=== PATIENT | male | born 1940 | race Caucasian/White ===

== ENCOUNTER 2025-08-08 09:49 | Day surgery (SDC) | payer MEDICARE ==
[~2025-08-08] VITALS: Ht 188 cm; Wt 103.1 kg
[2025-08-08] VITALS (14 sets, daily range): BP systolic 95–134; BP diastolic 40–82; PULSE 54–89; RESP 6–24; TEMP 97; O2SAT 94–100
[2025-08-08] MEDS: DOCUMENT DATE & TIME OF BETA-BLOCKER PO ONE (05:30)
[2025-08-08] MEDS: ceFAZolin/D5W- 1GM premix 50 ML IV ONE (05:30)
[~2025-08-08 09:49] MED LIST: APIX5TAB3 PO; ASPI-529 PO; ATOR40TA72 PO; FURO20TA4 PO; GABA-530 PO; METO50TA17 PO; OXYC-658 PO; PANT40TA54 PO; POTA-192 PO; SPIR25TA5 PO
[2025-08-08] MEDS ORDERED: enalaprilat 1.25mg/ml 2ml vial IV PRN (09:55)
[2025-08-08] MEDS ORDERED: ringers solution, lacted 1,000 ML IV SCH (09:55)
[2025-08-08] MEDS ORDERED: labetalol 20mg/4ml (5mg/ml) syringe IV PRN (09:55)
[2025-08-08] MEDS ORDERED: morphine 4 MG/ML inj SYRINge IV PRN (09:55)
[2025-08-08] MEDS ORDERED: ondansetron/PF 4mg/2ml inj IV PRN (09:55)
[2025-08-08] MEDS ORDERED: fentaNYL/PF 50MCG/1 ML 2ML syringe IV PRN ×2 (09:55)
[2025-08-08] MEDS ORDERED: HYDROmorphone/PF 0.2 MG/ML SYRINGE IV PRN ×2 (09:55)
[2025-08-08] MEDS ORDERED: iohexol 300 MG/1 ML 50ml polymer ONE (10:08)
[2025-08-08] MEDS: ringers solution, lacted 1,000 ML IV SCH (11:00)
[2025-08-08 11:03] LABS: MEAN PLATELET VOLUME 9.3 FL (7.4-10.4); PRE OP HEMATOCRIT 29.7 % (42.0-52.0); PRE OP PLATELET COUNT 187 X10'3 (140-440); PRE OP WHITE BLOOD COUNT 7.1 10'3 (4.8-10.8); RED CELL DISTRIBUTION WIDTH 17.2 % (11.5-14.5)
[2025-08-08 11:06] LABS: PRE OP HEMOGLOBIN 9.8 g/dL (14.0-17.9)
[2025-08-08 11:16] LABS: CREATININE 2.26 MG/DL (0.60-1.10); PRE OP ALT 35 U/L (30-65); PRE OP ANION GAP 5 (8-16); PRE OP AST 43 U/L (10-37); PRE OP BILIRUB, TOTAL 1.8 MG/DL (0.0-1.0); PRE OP GLUCOSE 155 MG/DL (70-104); PRE OP POTASSIUM 4.0 MMOL/L (3.4-5.1); PRE OP SODIUM 139 MMOL/L (135-145); TOTAL CARBON DIOXIDE 28.2 MMOL/L (24-32); eCRCL 27 ML/MIN; eGFR 28 ML/MIN
[2025-08-08] MEDS ORDERED: midazolam 1 mg/ML 2ml injection ONE (11:49)
[2025-08-08] MEDS ORDERED: fentaNYL/PF 50MCG/1 ML 2ML syringe ONE (11:49)
[2025-08-08] MEDS ORDERED: dexamethasone sod phosphate 4mg/ml inj. ONE (13:37)
[2025-08-08] MEDS ORDERED: LIDOcaine 2% (20mg/ml) 5ml vial ONE (13:38)
[2025-08-08] MEDS ORDERED: propofol inj 20 ML IV ONE (13:38)
--- NOTE | 2025-08-08 13:48 | POSTOPERATIVE RECORDS ---
Postoperative Records Providers to CC ~ Date of Procedure: Aug 08, 2025 Problems: (1) Left renal stone Post-Operative Diagnosis SAME as PRE-Op Procedure Performed 1. left ureteral stent removal 2. left RRSE with laser and CVAC 3. left ureteral stent replacement Surgeon: Jay Jay Jansen none Anesthesiologist: Jack Yeager Type of Anesthesia: General Findings: dictated Complications none Prosthetics\Implants used: stent Estimated Blood Loss: minimal Specimen Removed: stones Description of Procedure: dictated JUDITH ZAPATA MD Aug 08, 2025 13:48
--- NOTE | 2025-08-08 14:55 | OPERATIVE REPORT ---
DATE OF SURGERY: 08/08/2025 DICTATING PHYSICIAN: Pedro Goyal MD Operative Report PREOPERATIVE DIAGNOSES: * Multiple large left renal stones. * Left ureteral stent. POSTOPERATIVE DIAGNOSES: * Multiple large left renal stones. * Left ureteral stent. OPERATIONS PERFORMED: * Left ureteral stent removal. * Left retrograde ureteroscopic stone extraction with laser and continuous vacuum-assisted clearance of debris. * Fluoroscopy with interpretation, greater than 1 hour. * Modifier 22 for increased procedural services. SURGEON: Pedro Goyal MD ANESTHESIA: General anesthesia. INDICATIONS: An 85-year-old male with large volume nephrolithiasis on the left. He had a stent placed by Dr. Santillan with multiple remaining stones, the largest being 2.5 cm in the left renal pelvis. The patient now presents for definitive management of his high-volume nephrolithiasis. DESCRIPTION OF PROCEDURE: After obtaining informed consent, the patient was taken to the operating room and general anesthesia was induced. Then, his Hawkins catheter was then removed from his bladder. The standard prep and drape of the genitals was then performed. The cystoscope was placed in the bladder and the tail of the left ureteral stent, grasped and pulled out to the urethra. A wire was then pushed through the stent and coiled into the left kidney and the stent discarded. A second wire was placed with a 10-Italian dual-lumen catheter followed by the ureteral access sheath, followed by the vacuum assist flexible ureteroscope. There was large volume nephrolithiasis easily visible. Anterior laser lithotripsy was performed using the thulium laser, breaking the stones into numerous fragments. There were 3 medium-sized stones of about 8 mm each and 1 large stone of about 2.5 cm. Each of these was addressed. There was a peripheral calcification which was outside the collecting system and thought to represent an ingested pill. Tedious laser lithotripsy was performed breaking the stone into multiple fragments, which were evacuated using vacuum assist with continuous vacuum assist. Modifier 22 was utilized due to increased procedural services, CVAC aka Calixo vacuum aspiration catheter utilized to remove all stone fragments, rendering the patient stone-free. Once the patient was rendered stone free, it was elected to leave a stent. The safety wire was left indwelling and the sheath removed under direct vision. The guidewire was then backloaded over the cystoscope and used to pass a 6-Italian x 26 cm double J stent ____ scope in the kidney and bladder during fluoroscopy and cystoscopy. The implant was removed with ____ in the office. A Hawkins catheter was then placed back in the bladder at patient request. The patient was then awakened from anesthesia and tolerated the procedure well. COMPLICATIONS: None. ESTIMATED BLOOD LOSS: Minimal. Pedro Goyal MD TID: [id number] RECEIPT: [id number] PF/BLANCA
--- NOTE | 2025-08-09 08:40 | RADIOLOGY REPORT ---
C-ARM FLUOROSCOPY: PROCEDURE: Left internal ureteral stent placement FLUOROSCOPY TIME: 86.5 seconds Air Kerma: 48.6 mgy FINDINGS: Spot intraoperative C arm radiographs demonstrating left internal ureteral stent placement. IMPRESSION: Please refer to surgical report for detailed findings.
== END 2025-08-08 16:16 | disposition home or self-care (01) ==
LOC: PAS 09:49
PROVIDERS: ATTEND Urology
DX: N20.0 Calculus of kidney (principal); E11.9 Type 2 diabetes mellitus without complications; E78.00 Pure hypercholesterolemia, unspecified; I48.91 Unspecified atrial fibrillation; I42.9 Cardiomyopathy, unspecified; Z87.442 Personal history of urinary calculi; Z79.01 Long term (current) use of anticoagulants; Z79.4 Long term (current) use of insulin; Z79.84 Long term (current) use of oral hypoglycemic drugs; Z79.891 Long term (current) use of opiate analgesic; Z79.899 Other long term (current) drug therapy; Z95.0 Presence of cardiac pacemaker; Z98.890 Other specified postprocedural states
CPT/HCPCS: 36415; 52356; 74018; 74420; 80053; 82948; 85025; A4618; C1747; C1758; C1769; C1894; C2617; J0690; J1100; J2003; J2250; J2270; J2704; J3010; J7120; Q9967; Z7506; Z7508; Z7512; Z7610; 76000